=== PATIENT | male | born 1985 | race Caucasian/White ===

== ENCOUNTER → 2017-03-23 | Emergency (ER) | payer OTHER ==
[~2017-03-23] VITALS: Ht 160 cm; Wt 52.3 kg
[~2017-03-23] MED LIST: CLEO300C2 PO; CLINDAMYCIN 150 MG CAP PO ONE; IBUP-1022 PO; METAL LOCK LOOP XX ONE; OXYCODONE/APAP 5MG/325MG(BULK FOR ED) 1 TABLET PO ONE; PERC5TAB12 PO
[2017-03-23 23:03] VITALS: BP 158/93
== END | disposition home or self-care (01) ==
LOC: M ED 23:03
DX: K04.7 Periapical abscess without sinus (principal); K02.9 Dental caries, unspecified; S02.5XXA Fracture of tooth (traumatic), initial encounter for closed fracture; X58.XXXA Exposure to other specified factors, initial encounter; Y92.89 Other specified places as the place of occurrence of the external cause; Y93.89 Activity, other specified; Y99.8 Other external cause status; Z87.891 Personal history of nicotine dependence

== ENCOUNTER 2019-10-24 23:27 | Emergency (ER) | payer OTHER ==
[~2019-10-24] VITALS: Ht 160 cm; Wt 55.5 kg
[~2019-10-24 23:27] MED LIST changes: -CLINDAMYCIN 150 MG CAP PO ONE; -METAL LOCK LOOP XX ONE; -OXYCODONE/APAP 5MG/325MG(BULK FOR ED) 1 TABLET PO ONE
[2019-10-24 23:28] VITALS: BP 163/87
[2019-10-24] MEDS ORDERED: DICLOFENAC (23:32)
[2019-10-24] MEDS ORDERED: AMOX/K (23:32)
[2019-10-25] MEDS ORDERED: BUPIVACAINE LIPOSOME/PF 1.3% 20ML VIAL (13.3MG/ML)(EXPAREL)(C9290 PER1MG) INFIL ONE (00:30)
[2019-10-25] MEDS ORDERED: FLAG500T PO (00:40)
[2019-10-25] MEDS ORDERED: metroNIDAZOLE (FLAGYL) 500 MG TAB PO ONE (00:45)
== END 2019-10-25 01:23 | disposition home or self-care (01) ==
LOC: M ED 23:27
DX: K02.9 Dental caries, unspecified (principal); K08.89 Other specified disorders of teeth and supporting structures

== ENCOUNTER 2025-02-26 21:16 | Emergency (ER) | payer OTHER ==
[~2025-02-26] VITALS: Ht 157.5 cm; Wt 61.5 kg
[~2025-02-26 21:16] MED LIST changes: +AMOX/K; +DICLOFENAC; +FLAG500T PO; -IBUP-1022 PO; +IBUP600T42 PO
[2025-02-27 00:35] VITALS: BP 123/86; TEMP 98.1; O2SAT 97
== END 2025-02-27 01:00 | disposition left against medical advice (07) ==
LOC: M ED 21:16
DX: Z53.21 Procedure and treatment not carried out due to patient leaving prior to being seen by health care provider (principal)